=== PATIENT | female | born 1950 ===

== ENCOUNTER 2023-04-23 05:20 | Day surgery (SDC) | payer OTHER ==
[~2023-04-23 05:20] MED LIST: TOPROL XL100 M1 PO
[2023-04-23] MEDS ORDERED: MACROBID 100 M100 MG PO (09:57)
[2023-04-23] MEDS ORDERED: TRAM1TAB98 PO (09:58)
== END 2023-04-23 12:10 | disposition home or self-care (01) ==
LOC: CIR.AMB 05:20
PROVIDERS: ATTEND Obstetrics & Gynecology Gynecology
DX: N81.11 Cystocele, midline (principal); N81.12 Cystocele, lateral; I10 Essential (primary) hypertension; Z20.822 Contact with and (suspected) exposure to COVID-19; R07.9 Chest pain, unspecified; R33.9 Retention of urine, unspecified

== ENCOUNTER 2024-08-11 05:28 | Day surgery (SDC) | payer OTHER ==
[2024-07-21 10:57] VITALS: BP 131/82
[~2024-08-11] VITALS: Ht 149.9 cm; Wt 75.3 kg
[~2024-08-11 05:28] MED LIST changes: +MACROBID 100 M100 MG PO; +TRAM1TAB98 PO
[2024-08-11] MEDS ORDERED: LIDOCAINE HCL 1%/EPINEPHRINE 20ML VIAL IJ ONE (07:20)
[2024-08-11] MEDS ORDERED: CEFAZOLIN SODIUM 1,000 MG VIAL ONE (07:20)
[2024-08-11] MEDS ORDERED: CHLORHEXIDINE GLUCONATE 120 ML BOTTLE TOP ONE (07:20)
[2024-08-11] MEDS ORDERED: GENTAMICIN SULFATE 40 MG/ML VIAL ONE (07:20)
[2024-08-11] MEDS ORDERED: MACROBID 100 M100 MG PO (09:50)
[2024-08-11] MEDS ORDERED: ACETAMINOPHEN-1 EAC2 PO (09:55)
== END 2024-08-11 12:25 | disposition home or self-care (01) ==
LOC: O/R 05:28 → SURH 05:28 → CIR.AMB 05:28 → O/R 12:25
PROVIDERS: ATTEND Obstetrics & Gynecology Gynecology
DX: N81.3 Complete uterovaginal prolapse (principal)